=== PATIENT | male | born 1985 | race Caucasian/White ===

== ENCOUNTER → 2021-04-12 04:40 | Outpatient (CLI) | payer BC, SELFPAY ==
[2021-04-12 20:06] LABS: SARS-CoV-2 RNA PCR Negative
== END ==
PROVIDERS: Visit Provider Surgery
DX: Z01.812 Encounter for preprocedural laboratory examination (principal); Z20.822 Contact with and (suspected) exposure to COVID-19
CPT/HCPCS: C9803; U0003; U0005

== ENCOUNTER 2021-04-12 09:01 | Outpatient (CLI) | payer BC, SELFPAY ==
[2021-04-12 09:22] LABS: Hematocrit 48.5 % (42.0-52.0); Hemoglobin 16.8 g/dL (14.0-18.0)
--- NOTE | 2021-04-12 15:30 | ECG_ITS ---
Measurements Intervals [place] Rate: 84 P: 27 TN: 163 QRS: 23 QRSD: 88 T: 32 QT: 372 QTc: 440 Interpretive Statements SINUS RHYTHM NORMAL ECG Electronically Signed On 04-12-2021 9:40:30 CDT by Dhiraj Cullen D.O.
== END 2021-04-12 09:02 | disposition home or self-care (01) ==
LOC: ANHSURGERY 09:03
PROVIDERS: Anesthesiology; PCP Internal Medicine; Visit Provider Surgery
DX: K40.90 Unilateral inguinal hernia, without obstruction or gangrene, not specified as recurrent (principal); Z01.818 Encounter for other preprocedural examination
CPT/HCPCS: 36415; 85014; 85018; 86850; 86900; 86901; 93005; C9803; U0003; U0005

== ENCOUNTER 2021-04-14 01:37 | Day surgery (SDC) | payer BC, SELFPAY ==
[2021-04-12 08:41] VITALS: BMI 25.7
[2021-04-14] VITALS (8 sets, daily range): BP systolic 122–151; BP diastolic 77–117; PULSE 76–111; RESP 12–20; TEMP 36.6–37.6; O2SAT 94–98; BMI 25.3
--- NOTE | 2021-04-14 08:41 | P.PNAN_ITS ---
Anes - Initial Pre Proc Eval Procedure: Operation Date: 04/14/21 12:00 Proposed Procedures p Laparoscopic Bilateral Inguinal Hernia Repair with Mesh, - Eduar Noel MD s Umbilical Hernia Repair with Sutures - Eduar Noel MD Date/Time: 04/14/21 08:41 Surgeon: Eduar Noel MD Pre Op Diagnosis: bilat ing hernia, umbilical hernia Patient Data Age: 35 Gender: M Height: 1.83 m Weight: 86 kg Allergies Allergy/AdvReac Type Severity Reaction Status Date / Time No Known Allergies Allergy Verified 04/14/21 10:30 Home Medications Medication Instructions Recorded Confirmed Type No Home Medications 04/05/21 04/14/21 History Patient hx anesthesia problems: none Family hx anesthesia problems: none PMFSH Past Medical History Medical History (Updated 04/11/21 @ 10:39 by Kinga Francisco) History of depression Surgical History Surgical History (Updated 04/11/21 @ 09:40 by Nikkie Blackmon [facility]) No pertinent past surgical history [place] teeth extracted Family History Family History Father Lung cancer Mother Hypertension Social History Social History Smoking packs per day: 1 Smoking cigarettes per day: 20.0 Years smoked: 15 Smoking pack-years: 15.00 Smoking status: Current every day smoker Tobacco type: cigars Alcohol intake: current Drinks per week: 20 Substance use: never Substance use type: does not use Living arrangements: with family Spiritual care concerns: No Anes - Eval Final PreProcedure Day of Procedure 04/14/21 08:41 Patient weight: normal Heart: regular rate and rhythm Lungs: clear to auscultation and normal air movement Airway: Mallampati scale class II Neurological: alert and oriented Last oral intake: >/= 8 hours ASA classification: II Emergent: no Anesthetic plan: proceed Anesthesia type and monitoring: general LMA and ETT Informed Consent: The patient's anesthetic plan and its attendant risks and benefits were discussed with the patient/family/POA. Questions were solicited and answers provided to the satisfaction of the patient/family/POA.
[2021-04-14] MEDS: ACETAMINOPHEN 500 MG TABLET 1000 MG PO (10:49)
[2021-04-14] MEDS: LACTATED RINGERS 1,000 ML 30 ML IV CONT ×3 (11:00→16:02)
[2021-04-14] MEDS: KETOROLAC 15 MG/ML VIAL (*BKC) IV PUSH (11:07)
--- NOTE | 2021-04-14 12:11 | WPDHPUPDATE1 ---
History and Physical Update Update Date/Time: 04/14/21 12:11 History and Physical has been reviewed, including an updated exam of the patient. There are NO changes in the patient's condition. Risks, benefits, and alternatives have been discussed and questions answered. Patient agrees to proceed with procedure.
[2021-04-14] MEDS: ceFAZolin 2 GM/D5W 50 ML 2 GM/50 ML BAG IVPB (12:16)
[2021-04-14] MEDS: BUPIVACAINE HCL 0.5% PF 30 ML VIAL INFILTRATE ×2 (12:56→13:16)
--- NOTE | 2021-04-14 15:28 | PM.PROC ---
Procedure Note - Detailed Date of procedure: 04/14/21 Pre-op diagnosis: bilat ing hernias, umbilical hernia Post-op diagnosis: same (Right was direct and indirect.) Description of procedure: After appropriate marking of the operative site prior to surgery, the patient was taken to the operating room. After induction of adequate general endotracheal anesthesia by [facility] staff, the patient was carefully prepped and draped in a sterile fashion. A time-out was performed confirming the procedure and site of surgery on both sides and at the umbilicus. Following this, local anesthetic was infiltrated into the umbilical area and a curvilinear transverse incision was made just below the umbilicus. I carefully dissected down to the the anterior rectus sheath on the right and then made a 1 cm vertical slit in the fascia just off the midline. The rectus muscle was retracted to the right and then just in front of the posterior rectus sheath, a dissecting balloon was passed onto the pubic bone. this was insufflated with 40 pumps using the oval-shaped balloon to dissect on both sides, while watching with the 0 degree laparoscope. It appeared that I was in the proper plane. Following this, the dissecting balloon was removed and replaced by an O- frame 25 cc conforming balloon. Following this, the 0 degree laparoscope was used to carefully place two 5mm narrow trocars, right in the midline. These were placed under direct vision after marking sites in placing local anesthetic in the skin and subcu tissues beneath the incision sites. One was placed in the midline suprapubic and other one [facility] between the umbilicus and the pubic bone. Tedious dissection then occurred in the preperitoneal space exposing the David's ligament, the cord structures, the muscular tissue anteriorly, and the retroperitoneum. This was done on both sides doing the right 1st since this was larger and more symptomatic to the patient. This tissue and the indirect hernia sac on the right was then able to be dissected back and we could visualize the posterior peritoneum. I then dissected up to the level of the umbilicus and it was ready for mesh placement. After dissecting out the lateral portion of the indirect sac on the left there was still some preperitoneal tissue covering the pubic bone and the David's ligaments on both sides. I carefully dissected this down. In doing so I found a definite direct hernia on the right and the exposed pseudo sac was then grasped and brought medially and tacked to the anterior abdominal wall musculature with 2 tacks from a thick on Suretack tacker before placing the mesh. To be mentioned that 1 of the tacks start up some bleeding and I placed a Kittner directly on the bleeding site and held pressure for 1 minutes. This seemed to stop well but approximately 20 cc of blood accumulated in the preperitoneal space. I placed 1 4x4s down in the space using the 12 mm port site while watching with the 5 mm camera from 1 of the 5 mm port sites and soaked up all blood and brought this back out. This allowed us to see well as we are placing the mesh. We checked this spot at the end of the procedure and it was not continuing to bleed. After carefully confirming all sites and that the mesh would cover the direct space, I carefully rolled the right large 3DMax mesh and slid this through the 12 mm trocar at the umbilical level down into the preperitoneal space. This unfurled nicely and sat nicely against the right groin structures. It nicely covered all spaces and it went back nicely into the preperitoneal space along the anterior-superior iliac spine. I then confirmed that the mesh covered the preperitoneal groin well, and had come down to the posterior border of the peritoneum. I did use about 3 tacks to tack the mesh to David's ligament and 1 into the anterior abdominal wall lateral to the epigastric vessels. Similarly on the left side I then carefully confirmed all sites and that
[2021-04-14] MEDS: ONDANSETRON INJ 4 MG/2 ML VIAL IV PUSH (16:26)
[2021-04-14] MEDS: oxyCODONE HCL (*CRX) 5 MG TAB IR PO (16:43)
== END 2021-04-14 17:04 | disposition home or self-care (01) ==
PROVIDERS: PCP Internal Medicine; Visit Provider Surgery
PROC: (CPT 49650; principal; 2021-04-14 12:00)
PROC: (CPT 49650; 2021-04-14 12:00)
DX: K40.20 Bilateral inguinal hernia, without obstruction or gangrene, not specified as recurrent (principal); K42.9 Umbilical hernia without obstruction or gangrene; F17.290 Nicotine dependence, other tobacco product, uncomplicated
CPT/HCPCS: 49650; 49585; A9270; C1727; C1781; J0690; J1885; J2250; J2405; J3010; J7120